=== PATIENT | female | born 1950 | race Caucasian/White ===

== ENCOUNTER 2020-12-02 17:46 | Emergency (ER) | payer OTHER, MEDICAID ==
[~2020-12-02] VITALS: Ht 152.4 cm; Wt 77.0 kg
[~2020-12-02 17:46] MED LIST: BENAZEPRIL; DOCUSATE; METFORMIN; OMEPRAZOLE; [UNRECOGNIZED DRUG - OTHER]
[2020-12-02] MEDS ORDERED: ACETAMINOPHEN 325MG TABLET PO STA (18:58)
[2020-12-02] MEDS ORDERED: SODIUM CHLORIDE 0.9% 1000ML BAG (SEPSIS BOLUS) IV ONE (19:00)
[2020-12-02 19:43] LABS: BASOPHILS % 0.1 % (0.0-2.0); EOSINOPHILS % 0.1 % (0.0-5.0); HEMATOCRIT. 34.5 % (36.0-48.0); HEMOGLOBIN. 10.4 g/dL (12.0-16.0); LYMPHOCYTES % 9.8 % (20.0-50.0); MEAN CORPUSCULAR HEMOGLOBIN 28.3 pg (28.0-32.0); MEAN CORPUSCULAR VOLUME 93.5 fL (81.0-99.0); MEAN PLATELET VOLUME 7.2 fl (7.4-10.4); MONOCYTES % 9.3 % (2.0-8.0); NEUTROPHILS % 80.7 % (40.0-76.0); PLATELET 273 x1000/uL (130-400); RED BLOOD CELL COUNT 3.69 mill/uL (4.2-5.4)
[2020-12-02 19:50] LABS: CHLORIDE 100 mEq/L (98-107)
[2020-12-02] MEDS ORDERED: METRONIDAZOLE 500 MG PREMIX 100 ML IV ONE (21:15)
[2020-12-02] MEDS ORDERED: CEFTRIAXONE 1 G PREMIX 50 ML IV ONE (21:15)
[2020-12-02] MEDS ORDERED: IBUPROFEN 600MG TABLET PO ONE (23:15)
[2020-12-03 00:19] VITALS: BP 116/55
== END 2020-12-03 00:38 | disposition short-term general hospital (02) ==
LOC: ER 17:46 → CANBEDREQ 12-03 02:01
DX: A41.9 Sepsis, unspecified organism (principal); K57.20 Diverticulitis of large intestine with perforation and abscess without bleeding; E11.65 Type 2 diabetes mellitus with hyperglycemia; E87.2 Acidosis; I10 Essential (primary) hypertension; F03.90 Unspecified dementia, unspecified severity, without behavioral disturbance, psychotic disturbance, mood disturbance, and anxiety; Z79.84 Long term (current) use of oral hypoglycemic drugs
CPT/HCPCS: 36415; 71045; 74176; 80053; 82962; 83605; 85025; 87040; 93005; 96361; 96365; 96367; 99285; J0696; J3490; J7030